=== PATIENT | female | born 1995 | race African-American/Black ===

== ENCOUNTER 2017-05-01 18:24 | Emergency (ER) | payer OTHER ==
[2017-05-01] MEDS ORDERED: DIPHENHYDRAMINE HCL 25 MG CAPSULE PO ONE (18:58)
[2017-05-01] MEDS ORDERED: PSEUDOEPHEDRINE HCL 30 MG TABLET PO ONE (18:58)
--- NOTE | 2017-05-01 18:58 | ER Document Report ---
HPI - HPI Onset: Last week Onset/Duration: Gradual Pain Level: 4 Associated Symptoms: Allergy/hay fever, Nonproductive cough, Headache, Rhinnorhea, Sore throat. denies: Chills, Productive cough, Fever, Hurts to breath, Nausea, Vomiting, Sinus pain/drainage, Shortness of breath Exacerbated by: Denies Relieved by: Denies Recently seen / treated by doctor: Yes - given albuterol and tessalon perles by [employer] without improvement - DERM Skin Color: Normal Past Medical History - Social History Smoking Status: Former Smoker Family History: Reviewed & Not Pertinent Patient has suicidal ideation: No Patient has homicidal ideation: No Renal/ Medical History: Denies: Hx Peritoneal Dialysis Vertical Provider Document - CONSTITUTIONAL Agree With Documented VS: Yes Exam Limitations: No Limitations General Appearance: WD/WN, No Apparent Distress - INFECTION CONTROL TRAVEL OUTSIDE OF THE [place] IN LAST 30 DAYS: No - HEENT HEENT: Atraumatic, Normocephalic, PERRLA, Pharyngeal Erythema. negative: Pharyngeal Exudate, Pharyngeal Tenderness, Tympanic Membrane Red, Tympanic Membrane Bulging Notes: post nasal drip evident - NECK Neck: Normal Inspection. negative: Lymphadenopathy-Left, Lymphadenopathy-Right - RESPIRATORY Respiratory: Breath Sounds Normal, No Respiratory Distress, Chest Non-Tender. negative: Rales, Rhonchi, Wheezing O2 Sat by Pulse Oximetry: 100 - CARDIOVASCULAR Cardiovascular: Regular Rate, Regular Rhythm, No Murmur Pulses: Normal: Radial - MUSCULOSKELETAL/EXTREMETIES Musculoskeletal/Extremeties: MAEW, FROM, Non-Tender, No Edema. negative: Eccymosis - NEURO Level of Consciousness: Awake, Alert, Appropriate Motor/Sensory: No Motor Deficit, No Sensory Deficit - DERM Integumentary: Warm, Dry, No Rash Course - Re-evaluation Re-evalutation: 05/01/17 21:23 Patient is a 21-year-old female hemodynamic stable, no acute distress and afebrile. Chest x-ray clear for any evidence of acute cardiopulmonary process. Patient's vitals are stable. We will treat for postnasal drip with over-the- counter medications as well as Flonase. Patient to follow-up with primary care. - Vital Signs Vital signs: Temp Pulse Resp BP Pulse Ox 97.9 F 99 H 16 135/65 H 100 05/01/17 18:28 05/01/17 18:28 05/01/17 18:28 05/01/17 18:28 05/01/17 18:28 - Diagnostic Test Radiology reviewed: Image reviewed, Reports reviewed Discharge - Discharge Clinical Impression: Post-nasal drip Condition: Good Disposition: HOME, SELF-CARE Instructions: Nasal Sprays and Drops ([facility]) Prescriptions: Fluticasone Propionate [Flonase Allergy Relief] 9.9 ml NS ASDIR PRN #1 spray.susp PRN Reason:
--- NOTE | 2017-05-01 19:14 | RADIOLOGY REPORT (SQ) ---
EXAM DESCRIPTION: CHEST PA/LAT COMPLETED DATE/TIME: 05/01/2017 6:57 pm REASON FOR STUDY: cough, SOB COMPARISON: None. EXAM PARAMETERS: NUMBER OF VIEWS: two views TECHNIQUE: Digital Frontal and Lateral radiographic views of the chest acquired. RADIATION DOSE: NA LIMITATIONS: none FINDINGS: LUNGS AND PLEURA: No opacities, masses or pneumothorax. No pleural effusion. MEDIASTINUM AND HILAR STRUCTURES: No masses or contour abnormalities. HEART AND VASCULAR STRUCTURES: Heart normal size. No evidence for failure. BONES: No acute findings. HARDWARE: None in the chest. OTHER: No other significant finding. IMPRESSION: NO SIGNIFICANT RADIOGRAPHIC FINDING IN THE CHEST. TECHNICAL DOCUMENTATION: JOB ID: [id number] [employer]- All Rights Reserved
[2017-05-01 20:16] VITALS: BP 123/74
== END 2017-05-01 20:17 | disposition home or self-care (01) ==
LOC: ER 18:24
DX: J30.1 Allergic rhinitis due to pollen (principal); R09.82 Postnasal drip; R05 Cough; R50.9 Fever, unspecified; R51 Headache; J02.9 Acute pharyngitis, unspecified; Z87.891 Personal history of nicotine dependence
CPT/HCPCS: 71020; 99283